=== PATIENT | female | born 1985 | race Caucasian/White ===

== ENCOUNTER 2018-12-08 23:40 | Emergency (ER) | payer OTHER ==
[~2018-12-08] VITALS: Ht 160 cm; Wt 97.5 kg
[2018-12-08 23:48] VITALS: BP 133/73
--- NOTE | 2018-12-09 00:03 | NUR ---
PT TO ED W C/O EPIGASTRIC PAIN X 6 HRS. PT REPORTS N/V. PT DENIES DIARRHEA. ABD IS SOFT NON TENDER, BOWEL SOUNDS PRESENT. PT PLACED INTO BED, PENDING MD HOLLAND
[2018-12-09] MEDS ORDERED: NACL 0.9% 500 ML IV ONE (00:11)
[2018-12-09] MEDS ORDERED: KETOROLAC 30 MG/ML VIAL IVP ONE (00:15)
[2018-12-09] MEDS ORDERED: ONDANSETRON 4 MG/2 ML VIAL IVP ONE (00:15)
[2018-12-09] MEDS ORDERED: PANTOPRAZOLE 40 MG INJ VIAL IVP ONE (00:25)
[2018-12-09 00:51] LABS: BASOPHILS # (AUTO) 0.1 K/uL (0.00-0.22); BASOPHILS % (AUTO) 0.4 % (0.0-2.0); HEMATOCRIT 37.4 % (36-48); HEMOGLOBIN 11.9 g/dL (12.0-16.0); LYMPHOCYTES # (AUTO) 1.2 K/uL (2.5-16.5); LYMPHOCYTES % (AUTO) 7.6 % (20.5-51.1); MEAN CORPUSCULAR HEMOGLOBIN 28 pg (27-31); MEAN CORPUSCULAR HGB CONC 32 g/dL (33-37); MEAN CORPUSCULAR VOLUME 88.6 fL (80-94); MONOCYTES # (AUTO) 0.4 K/uL (0.8-1.0); MONOCYTES % (AUTO) 2.4 % (1.7-9.3); NEUTROPHILS # (AUTO) 13.8 K/uL (1.8-7.7); PLATELET COUNT (AUTO) 365 K/uL (140-450); RED BLOOD CELL COUNT(AUTO) 4.22 MIL/uL (4.20-5.40); RED CELL DISTRIBUTION WIDTH 14.8 % (11.6-13.7); WHITE BLOOD COUNT (AUTO) 15.4 K/uL (4.8-10.8)
[2018-12-09 00:56] LABS: CARBON DIOXIDE 24.1 mmol/L (21-32); CREATININE 0.9 mg/dL (0.6-1.3); POTASSIUM 4.1 mmol/L (3.5-5.1)
--- NOTE | 2018-12-09 00:56 | NUR ---
Dr. Croft evaluating patient at bedside.
--- NOTE | 2018-12-09 00:58 | NUR ---
PT ATTEMPTED IV STICK X 4, UNABLE TO OBTAIN ACCESS. EDMD AWARE.
[2018-12-09 01:02] LABS: ALBUMIN 4.1 g/dL (3.4-5.0); NEUTROPHILS % (AUTO) 89.6 % (42.2-75.2); TOTAL BILIRUBIN 0.3 mg/dL (0.0-1.0)
--- NOTE | 2018-12-09 01:26 | NUR ---
IV 20GA RT A/C DONE, BLOOD SENT TO LAB WITH 1 BLOOD FOR C&S.
[2018-12-09] MEDS ORDERED: fentaNYL 0.05 MG/ML VIAL IVP ONE (01:50)
--- NOTE | 2018-12-09 02:04 | NUR ---
Patient discharged with v/s stable. Written and verbal after care instructions given and explained. Patient alert, oriented and verbalized understanding of instructions. Ambulatory with steady gait. All questions addressed prior to discharge. ID band removed. Patient advised to follow up with PMD. Rx of TRAMDOL, PROTONIX, ZOFRAN given. Patient educated on indication of medication including possible reaction and side effects. Opportunity to ask questions provided and answered.
[2018-12-09 02:05] VITALS: BP 134/81
== END 2018-12-09 02:04 | disposition home or self-care (01) ==
LOC: MED 23:40
DX: K80.50 Calculus of bile duct without cholangitis or cholecystitis without obstruction (principal)
CPT/HCPCS: 36415; 76705; 80053; 81002; 81025; 83690; 85025; 96361; 96374; 96375; 99284; C9113; J1885; J2405; J7030; Q0092